=== PATIENT | female | born 1965 | race Caucasian/White ===

== ENCOUNTER 2016-11-01 00:30 | Emergency (ER) ==
--- NOTE | 2016-11-01 01:02 | PROVIDER DOCUMENTATION ---
HPI-General Adult - General Chief Complaint: Flu Symptoms Stated Complaint: FLU LIKE SX Time Seen by Provider: 11/01/16 00:44 Source: patient Allergies/Adverse Reactions: Patient Allergies Allergy/AdvReac Type Severity Reaction Status Date / Time No Known Allergies Allergy Verified 11/01/16 02:27 Home Medications: Home Medication List Medication Instructions Recorded Confirmed Last Taken Type Metformin [Glucophage] 500 mg PO BID CC #60 tablet 11/01/16 Unknown Rx Sulfamethoxazole/Trimethoprim 1 each PO BID #10 tablet 11/01/16 Unknown Rx [Bactrim Ds Tablet] - History of Present Illness -Gen Adult Nature of Presenting Problems: 51 y/o F c/o fever/chills, heart racing, nausea, eye burning x 6 hours. Pt states that she has not vomited, no diarrhea. States mild cough, non- productive. Did not take her temp at home. States that most sxs have resolved , but still has nausea and fever/chills. Denies influenza vaccine. Has been around sick contacts with influenza. Review of Systems - Adult - REVIEW OF SYSTEMS - ADULT Constitutional: reports: chills, fever Eyes: reports: eye pain. denies: see HPI, blurred vision, double vision Ears, Nose, Mouth & Throat: reports: see HPI. denies: ear pain, nose pain, throat pain Cardiovascular: reports: no symptoms reported. denies: chest pain, palpitations Respiratory: reports: see HPI, cough. denies: shortness of breath, wheezing Gastrointestinal: reports: see HPI, nausea. denies: abdominal pain, diarrhea, vomiting Genitourinary: reports: no symptoms reported. denies: dysuria, frequency Musculoskeletal: reports: no symptoms reported. denies: joint pain, joint swelling Integumentary: reports: no symptoms reported. denies: nail changes, rash Neurological: reports: no symptoms reported. denies: numbness, paresthesia Psychiatric: reports: no symptoms reported Endocrine: reports: no symptoms reported. denies: cold intolerance, heat intolerance Hematologic/Lymphatic: reports: no symptoms reported. denies: easy bruising, prolonged bleeding Allergic/Immunologic: reports: no symptoms reported All Other Systems: Reviewed and Negative Past History - Adult - PAST MEDICAL HISTORY-ADULT Review of Records: reports: Nursing Assessment Review, Medications Reviewed Major Childhood Illnesses: reports: denies history Cardiovascular: reports: denies history Respiratory: reports: denies history Gastrointestinal: reports: denies history Obstetrical/Gynecological: reports: denies history Genitourinary: reports: denies history Musculoskeletal: reports: other (herniated disck in c-spine) Neurological: reports: denies history Endocrine/Immune: reports: denies history Other Conditions: reports: denies history - PRIOR SURGERIES/PROCEDURES Surgical/Procedure History: reports: reviewed, not pertinent, hysterectomy, C- section - PRIOR HOSPITALIZATIONS Prior Hospitalizations: reports: for other non-related - IMMUNIZATION STATUS Childhood Immunizations: See Nurse Assessment Flu Vaccine: See Nurse Assessment - FAMILY HISTORY Family History: reviewed, not pertinent - SOCIAL HISTORY Smoking: denies Alcohol Use Frequency: 3-11 times last year Living Situation: family Physical Exam-General - PHYSICAL EXAM-ADULT Initial Vital Signs Reviewed: Yes - CONSTITUTIONAL General Appearance: alert, mild distress - EYES Eyes: pink conjunctivae - HEAD, EARS, NOSE, MOUTH & THROAT HENMT: normocephalic/atraumatic, moist mucous membranes - NECK Neck: supple, normal inspection - RESPIRATORY Respiratory: lungs clear, normal breath sounds. negative: crackles, rales, rhonchi, stridor, wheezing - CARDIOVASCULAR Cardiovascular: tachycardia. negative: bradycardia - GASTROINTESTINAL (ABDOMEN) Abdominal Exam: normal bowel sounds, non tender, soft. negative: distended, guarding, rigid, rebound - MUSCULOSKELETAL Back Exam: no CVA tenderness Extremity: normal gait - SKIN Integumentary: normal color, normal turgor, warm/dry - NEUROLOGIC Neurologic: negative: aphasia - PSYCHIATRIC Psych/Mental Status: normal mood/affect, normal thought content, normal thought process, oriented x 3 Progress - PLAN OF CARE/RESULTS Progress/Plan/Lab Results: Laboratory Tests 11/01/16 11/01/16 11/01/16 01:00 01:15 01:15 WBC 10.77 RBC 4.41 Hgb 13.8 Hct 38.7 MCV 87.8 MCH 31.3 H MCHC 35.7 RDW Std Deviation 12.4 Plt Count 334 MPV 10.0 Immature Gran % (Auto) 0.3 Neut % (Auto) 83.4 H Lymph % (Auto) 8.6 L [place] % (Auto) 6.5 Eos % (Auto) 0.9 Baso % (Auto) 0.3 Immature Gran # (Auto) 0.03 Neut # (Auto) 8.98 H Lymph # (Auto) 0.93 L [place] # (Auto) 0.70 H Eos # (Auto) 0.10 Baso # (Auto) 0.03 Sodium 133 L Potassium 3.9 Chloride 93 L Carbon Dioxide 23 L Anion Gap 17 BUN 11 Creatinine 0.6 Estimated GFR/1.73 m2 > 60 BUN/Creatinine Ratio 18 Glucose 351 H POC Glucose Calculated Osmolality 280 Calcium 9.2 Total Bilirubin 0.21 AST 37 H ALT 52 H Alkaline Phosphatase 133 H Total Protein 7.5 Albumin 4.3 Globulin 3.2 Albumin/Globulin Ratio 1.3 Urine Source CLEAN CATCH Urine Color YELLOW Urine Turbidity CLEAR Urine pH 5.0 Ur Specific [place] 1.038 Urine Protein NEGATIVE Ur Glucose (Stick) >1000 A Ur Ketones (Stick) 80 A Urine Blood NEGATIVE Urine Nitrite NEGATIVE Urine Bilirubin NEGATIVE Urobilinogen Dipstick NORMAL Urine Leukocytes NEGATIVE Urine WBC (Auto) 10-20 A Urine RBC (Auto) <10 U Epithel Cells (Auto) <10 Urine Bacteria (Auto) 1+ 11/01/16 11/01/16 02:26 04:06 WBC RBC Hgb Hct MCV MCH MCHC RDW Std Deviation Plt Count MPV Immature Gran % (Auto) Neut % (Auto) Lymph % (Auto) [place] % (Auto) Eos % (Auto) Baso % (Auto) Immature Gran # (Auto) Neut # (Auto) Lymph # (Auto) [place] # (Auto) Eos # (Auto) Baso # (Auto) Sodium Potassium Chloride Carbon Dioxide Anion Gap BUN Creatinine Estimated GFR/1.73 m2 BUN/Creatinine Ratio Glucose POC Glucose 295 H 259 H Calculated Osmolality Calcium Total Bilirubin AST ALT Alkaline Phosphatase Total Protein Albumin Globulin Albumin/Globulin Ratio Urine Source Urine Color Urine Turbidity Urine pH Ur Specific [place] Urine Protein Ur Glucose (Stick) Ur Ketones (Stick) Urine Blood Urine Nitrite Urine Bilirubin Urobilinogen Dipstick Urine Leukocytes Urine WBC (Auto) Urine RBC (Auto) U Epithel Cells (Auto) Urine Bacteria (Auto) Orders Category Date Time Status FSBS [Finger Stick Blood Sugar (ED)] DIRECTED Care 11/01/16 02:15 Active Saline Loc NOW Care 11/01/16 02:08 Active CHEST-2 VIEWS [RAD] Stat Exams 11/01/16 00:35 Completed BLOOD CULTURE [BLDCUL] Stat Lab 11/01/16 02:55 Results CBC WITH DIFF [HEME] Stat Lab 11/01/16 01:15 Completed COMPREHENSIVE METABOLIC PANEL [CHEM] Stat Lab 11/01/16 01:15 Completed GRAM STAIN [BLDCUL] Stat Lab 11/01/16 02:45 Results GRAM STAIN [BLDCUL] Stat Lab 11/01/16 02:55 Completed INFLUENZA SCREEN A/B Stat Lab 11/01/16 00:43 Completed URINALYSIS W/POSS RFLX CULT [URINALYSIS] Stat Lab 11/01/16 01:00 Completed URINE CULTURE [RM] Routine Lab 11/01/16 02:57 Results 0.9% Sodium Chloride Inj [Ns] 1,000 ml Med 11/01/16 02:08 Discontinued IV 999 mls/hr CefTRIAXONE 1 GM/NS [Rocephin 1 gm/Ns] 50 ml Med 11/01/16 02:15 Discontinued IV NOW Insulin Human Regular [Humulin R] Med 11/01/16 02:15 Discontinued 8 unit IV NOW ONE Ketorolac [Toradol] Med 11/01/16 01:05 Discontinued 30 mg IV NOW ONE Ondansetron [Zofran] Med 11/01/16 01:06 Discontinued 4 mg IV NOW ONE Pulse Oximetry Stat Oth 11/01/16 00:35 Active Discussed pt with Dr. Smyth; he agreed with POC. - XRAY 1 XRAY Study: Chest XRAY Interpretation: No PNA Departure - Departure Time of Disposition Order: 02:14 DIAGNOSIS: Hyperglycemia UTI (urinary tract infection) Qualifiers: Urinary tract infection type: acute cystitis Hematuria presence: without hematuria Qualified Code(s): N30.00 - Acute cystitis without hematuria DIAGNOSIS: (Ruled Out): Influenza Disposition: HOME 01 Certified Medical Emergency: Emergent Condition: Stable Additional Instructions: Follow up with PCP for further evaluation. Tylenol and/or motrin for fever/ chills. ED Follow Up Instructions: You have been treated by a care provider in the Emergency Department. These instructions are being provided to you so you can have an understanding of how to care for yourself upon discharge. Upon discharge from the Emergency Department, you are responsible for making arrangements for follow-up care by a physician of your choice. Take all prescribed medications as directed. Return to the Emergency Department immediately for any new or worsening symptoms. You may call the Physician Referral phone number at [phone] to obtain a list of Physicians who are taking new patients. Prescriptions: Sulfamethoxazole/Trimethoprim [Bactrim Ds Tablet] 1 each PO BID #10 tablet Metformin [Glucophage] 500 mg PO BID CC #60 tablet Referrals: None,PCP [Primary Care Provider] - Instructions: Urinary Tract Infection, [id number], Hyperglycemia, Easy-to- Read Attestation - Physician/ ALICE Attestation Patient care was provided by Advanced Practice Provider:: Yes Advanced Practice Provider:: Nichole Sahni Advanced Practice Provider documentation review:: The Mid-level provider documentation, treatment plan and medical decision making was reviewed by the physician who agrees with all treatment and medical decision making by the MLP.
[2016-11-01] MEDS ORDERED: TORADOL IV ONE (01:05)
[2016-11-01] MEDS ORDERED: ZOFRAN IV ONE (01:06)
[2016-11-01 01:26] LABS: MANUAL DIFF NEEDED? NO
[2016-11-01 01:26] LABS: URINE MICRO REVIEW NEEDED? NO; URINE SOURCE CLEAN CATCH
[2016-11-01 01:28] LABS: BASO% 0.3 % (0.0-0.8); EOS% 0.9 % (0.0-10.0); HEMATOCRIT 38.7 % (37.0-47.0); HEMOGLOBIN 13.8 g/dL (12.0-16.0); IMM GRAN# 0.03 X1000 (0.0-0.04); IMM GRAN% 0.3 % (0.0-0.5); LYMPH# 0.93 X1000 (1.2-3.4); LYMPH% 8.6 % (20.5-51.1); MCH 31.3 PG (27-31); MCHC 35.7 g/dL (33-37); MCV 87.8 FL (81-99); MONO% 6.5 % (1.7-9.3); NEUT% 83.4 % (42.2-75.2); PLT 334 X1000 (130-400); RBC 4.41 XMIL (4.2-5.4)
[2016-11-01 01:54] LABS: AGAP 17; ALBUMIN 4.3 g/dL (3.5-5.0); ALKALINE PHOSPHATASE 133 U/L (32-104); BUN 11 mg/dL (8-22); CALCIUM 9.2 mg/dL (8.8-10.2); CHLORIDE 93 mmol/L (98-107); COSMO 280; GOT 37 U/L (10-30); GPT 52 U/L (10-36); POTASSIUM 3.9 mmol/L (3.5-5.1); SODIUM 133 mmol/L (136-145); TCO2 23 mmol/L (25-35); TOTAL BILIRUBIN 0.21 mg/dL (0.20-1.00); TOTAL PROTEIN 7.5 g/dL (6.3-8.3)
[2016-11-01 02:02] LABS: UR EPITHELIAL CELLS <10 /HPF (<10); URINE BACTERIA 1+ /HPF; URINE RBC <10 /HPF (<10)
[2016-11-01 02:06] LABS: BILIRUBIN URINE NEGATIVE (NEGATIVE); BLOOD URINE NEGATIVE (NEGATIVE); COLOR YELLOW; GLUCOSE URINE >1000 mg/dL (NEGATIVE); LEUKOCYTES URINE NEGATIVE (NEGATIVE); NITRITE URINE NEGATIVE (NEGATIVE); PROTEIN URINE NEGATIVE (NEGATIVE); SP GRAVITY URINE 1.038; TURBIDITY URINE CLEAR (CLEAR); URINE CULTURE NEEDED? YES; UROBILINOGEN URINE NORMAL (NORMAL)
[2016-11-01] MEDS ORDERED: NS 1,000 ML IV ONE (02:08)
[2016-11-01] MEDS ORDERED: HUMULIN R IV ONE (02:15)
[2016-11-01] MEDS ORDERED: ROCEPHIN 1 GM/NS 50 ML IV ONE (02:15)
[2016-11-01 03:59] VITALS: BP 119/59
--- NOTE | 2016-11-01 09:28 | Diag Imaging Result Document ---
PROCEDURE NAME: CHEST-2 VIEWS - 11/01/2016 CHEST X-RAY 2 VIEWS, 11/01/2016: COMPARISON: None. FINDINGS: The lungs are normally expanded and clear. Heart size and mediastinal contours are normal. No pneumothorax or pleural effusion. IMPRESSION: Negative exam.
== END 2016-11-01 04:21 | disposition home or self-care (01) ==
LOC: ED 00:30
DX: N30.00 Acute cystitis without hematuria (principal); R73.9 Hyperglycemia, unspecified; R50.9 Fever, unspecified; R11.0 Nausea; H57.10 Ocular pain, unspecified eye; R05 Cough; R00.0 Tachycardia, unspecified
CPT/HCPCS: 71020; 80053; 81001; 82948; 85025; 87040; 87077; 87088; 87804; J0696; J1885; J2405; J7030